=== PATIENT | female | born 1945 | race Caucasian/White ===

== ENCOUNTER 2021-01-04 21:23 | Emergency (ER) | payer MEDICARE, SELFPAY ==
[2021-01-04 21:24] VITALS: BP 159/77; PULSE 73; RESP 18; TEMP 36.3; O2SAT 99; BMI 21.7
--- NOTE | 2021-01-04 22:06 | EKG12_ITS ---
Test Reason : ABD PAIN Blood Pressure : / mmHG Vent. Rate : 055 BPM Atrial Rate : 055 BPM P-R Int : 184 ms QRS Dur : 084 ms QT Int : 426 ms P-R-T Axes : 069 -74 028 degrees QTc Int : 407 ms Sinus bradycardia Left axis deviation Abnormal ECG Confirmed by AURE BRIGGS, KATHERINE ([id number]), digital editor CHEYANNE BYERS ([id number]) on 01/07/2021 1:41:43 PM Referred By: RACHEL Confirmed By:KATHERINE LOONEY MD
[2021-01-04] MEDS: Ondansetron 4 MG/2 ML Vial IV (22:16)
[2021-01-04] MEDS: Morphine 2 MG/ML Syringe IV (22:16)
--- NOTE | 2021-01-04 22:30 | RAD_ITS ---
STUDY: X-RAY CHEST REASON FOR EXAM: Female, 75 years old. pain TECHNIQUE: Single AP portable view of the chest. COMPARISON: 11/19/2016 FINDINGS: The lungs are clear and expanded. There is no demonstrated pleural abnormality. Normal size heart. Normal mediastinum and percy. Normal visualized pulmonary arteries. Normal visualized aortic arch and descending thoracic aorta. Normal visualized thoracic spine. Normal visualized ribs, clavicles, and shoulders. There is no demonstrated abnormality of the visualized soft tissue structures of the upper abdomen. RAD/Chest 1 View (Portable) IMPRESSION: Normal x-ray examination of the chest. Electronically Signed: Vishnu Alcala DO at 23:35 EDT Tel , Service support ,
[2021-01-04 22:33] LABS: Absolute Lymphocyte Count 2.18 X10^3/uL (0.83-4.51); Absolute Neutrophil Count 3.5 X10^3/uL (2.0-7.7); Basophil# 0.02 X10^3/uL; Basophil% 0.3 % (0-1); Eosinophil# 0.13 X10^3/uL; Hematocrit 41.3 % (37-47); Hemoglobin 13.6 g/dL (12.0-15.0); Lymphocyte # 2.18 X10^3/ul (0.83-4.51); Lymphocyte % 33.2 % (19-41); Mean Corp Hgb Conc 32.9 g/dL (32-36); Mean Corpuscular Hgb 30.6 pg (27.0-32.0); Mean Platelet Vol. 9.7 fl (6.2-12.0); Monocyte# 0.72 X10^3/uL; NRBC Flagged by Analyzer 0 % (0-5); Neutrophil # 3.51 X10^3/uL (2.7-7.7); Neutrophil % 53.3 % (47-70); Platelet Count 318 K/mm3 (150-450); RBC Distribution Width CV 13.1 % (11.6-14.6); RBC Distribution Width SD 44.4 fl (35.1-43.9); Red Blood Count 4.44 M/mm3 (4.2-5.4); White Blood Count 6.6 K/mm3 (4.4-11.0)
[2021-01-04 22:48] LABS: AST(SGOT) 19 U/L (15-37); Alanine Aminotransfer ALT/SGPT 26 U/L (13-56); Albumin, Serum 3.8 g/dL (3.2-5.0); Alkaline Phosphatase 69 U/L (45-117); Anion Gap 8 (5-15); BUN 18 mg/dL (7-18); BUN/Creat Ratio 15.9 RATIO (10-20); Bilirubin, Direct 0.12 mg/dL (0.00-0.30); Calcium,Total 9.3 mg/dL (8.5-10.1); Chloride 103 mmol/L (98-107); Creatinine, Serum 1.13 mg/dL (0.55-1.02); EST Glomerular Filtration Rate 50 mL/min (>60); Est Glom Filt Rate - Afr Amer 61 mL/min (>60); Estimated Creatinine Clearance 31.85 ml/min; Globulin 3.6 g/dL (2.2-4.2); Glucose 91 mg/dL (74-106); Lipase 171 U/L (73-393); Potassium 3.7 mmol/L (3.5-5.1); Protein, Total 7.4 g/dL (6.4-8.2); Sodium Level 138 mmol/L (136-145)
--- NOTE | 2021-01-04 23:56 | EDS_ITS ---
HPI <Dr. Elizabeth Hou MD - Last Filed: 01/05/21 00:48> History of Present Illness Chief Complaint: Abd Pain Informant: patient and spouse/S.O. Onset/Context/Timing Onset: Yesterday Context: Gradual Onset Current Severity: Moderate Maximum Severity: Severe Narrative Narrative: Patient present secondary to abdominal pain. She states she felt a twinge of pain yesterday but pain has worsened throughout the day today. She states is diffuse throughout her abdomen. She has had no nausea, vomiting, or diarrhea. No fever but has had some chills. She denies any prior abdominal surgeries. PFSH <Dr. Elizabeth Hou MD - Last Filed: 01/05/21 00:48> PFSH no medical history Home Medications multivitamin [Daily Multiple] 1 ea PO DAILY 11/19/16 [History Last Taken 11/18/16] calcium 01/04/21 [History Last Taken Unknown] dicyclomine 10 mg PO Q6H PRN #15 cap 01/05/21 [Rx Last Taken Unknown] tramadol 50 mg PO Q6H PRN #10 tab 01/05/21 [Rx Last Taken Unknown] Allergy/AdvReac Type Severity Reaction Status Date / Time codeine AdvReac Nausea Verified 01/04/21 21:26 no surgical history Social History Smoking Status: Never smoker ROS <Dr. Elizabeth Hou MD - Last Filed: 01/05/21 00:48> ROS ED Constitutional Constitutional ED: Reports chills; Denies fever(s) Eyes Eyes: Denies change in vision ENT ENT ED: Denies sore throat Cardiovascular Cardiovascular: Denies chest pain Respiratory/Chest Respiratory/Chest: Denies cough or dyspnea Gastrointestinal Gastrointestinal: Reports abdominal pain; Denies diarrhea, nausea or vomiting Genitourinary Genitourinary ED: Denies dysuria Musculoskeletal Musculoskeletal: Denies back pain Integumentary Denies rash Neurologic Neurologic: Denies headache(s) or weakness Psychiatric Psychiatric: Denies anxiety or depression Endocrine Endocrinology: Denies polydipsia or polyuria Allergic/Immunologic Allergic/Immunologic ED: Denies urticaria EXAM <Dr. Elizabeth Hou MD - Last Filed: 01/05/21 00:48> Physical Exam Const Vital Signs: 01/04/21 21:24 01/05/21 00:38 Temperature 97.4 F L Temperature Source Temporal Pulse Rate 73 59 L Respiratory Rate 18 17 Blood Pressure 159/77 H 113/62 Blood Pressure Mean 104 79 Pulse Ox 99 93 Oxygen Delivery Method Room Air Room Air Positive well nourished and well developed General Appearance ED: well developed HEENT Reports normocephalic and head/scalp atraumatic Eyes PERRL and EOMs intact bilaterally Neck supple Chest Wall inspection of chest normal and palpation of chest normal Resp normal respiratory effort and clear to auscultation bilaterally Cardio regular rate and regular rhythm GI GI Narrative: Mild diffuse abdominal tenderness. No guarding or rebound. Hypoactive but present bowel sounds. Palpation: tender Back/Spine no CVA tenderness Extremity normal to inspection Neuro oriented x3 and no sensory deficits noted Sensorium / Orientation: alert Motor Exam: strength 5/5 throughout Psych mental status grossly normal Skin no rashes or lesions noted <Dr. Virgil Canas MD - Last Filed: 01/05/21 02:04> Physical Exam Const Vital Signs: 01/04/21 21:24 01/05/21 00:38 Temperature 97.4 F L Temperature Source Temporal Pulse Rate 73 59 L Respiratory Rate 18 17 Blood Pressure 159/77 H 113/62 Blood Pressure Mean 104 79 Pulse Ox 99 93 Oxygen Delivery Method Room Air Room Air MDM <Dr. Elizabeth Hou MD - Last Filed: 01/05/21 00:48> MDM MDM Narrative Medical decision making narrative: Patient was given 2 mg of morphine, 4 mg of Zofran. 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 EKG is obtained along with lab work. Lab Data Attestation: I reviewed the patient's lab results. Labs: Laboratory Results - last 24 hr 01/04/21 01/04/21 22:00 22:00 WBC 6.6 RBC 4.44 Hgb 13.6 Hct 41.3 MCV 93.0 MCH 30.6 MCHC 32.9 RDW Std Deviation 44.4 H RDW Coeff of Joan 13.1 Plt Count 318 MPV 9.7 Immature Gran % (Auto) 0.200 Neut % (Auto) 53.3 Lymph % (Auto) 33.2 [place] % (Auto) 11.0 H Eos % (Auto) 2.0 Baso % (Auto) 0.3 Absolute Neuts (auto) 3.5 Absolute Lymphs (auto) 2.18 Nucleated RBC % 0 Sodium 138 Potassium 3.7 Chloride 103 Carbon Dioxide 27.0 Anion Gap 8 BUN 18 Creatinine 1.13 H Estim Creat Clear Calc 31.85 Est GFR (MDRD) Af Amer 61 Est GFR (MDRD) Non-Af 50 L BUN/Creatinine Ratio 15.9 Glucose 91 Calcium 9.3 Total Bilirubin 0.40 Direct Bilirubin 0.12 AST 19 ALT 26 Alkaline Phosphatase 69 Troponin I < 0.015 Total Protein 7.4 Albumin 3.8 Globulin 3.6 Lipase 171 Radiography Chest X-Ray - ED: 1 View, Read by ED Physician, Normal, Heart, Lungs and Mediastinum Diagnostic Testing: Radiology Impression Chest X-Ray 01/04/21 22:30 IMPRESSION: Normal x-ray examination of the chest. Electronically Signed: Vishnu Alcala DO at 23:35 EDT Tel , Service support , Abdomen/Pelvis CT 01/05/21 00:15 IMPRESSION: Normal enhanced CT of the abdomen and pelvis. Normal appendix. No evidence of bowel obstruction. Electronically Signed: Vishnu Alcala DO at 1:15 EDT Tel , Service support , EKG Initial EKG: Attestation: I personally reviewed and interpreted this EKG as follows: Interpretation: Sinus Bradycardia (Sinus bradycardia 55 bpm. No acute ischemia.) Treatment and Re-Evaluation Comments:: On repeat evaluation patient is resting comfortably lying back in the bed. She states she feels significantly improved. CT scan abdomen and pelvis is pending at this time will be signed out to oncoming physician for final review. If the CT is normal patient be discharged home and advised to follow bland diet monitor her symptoms. Return instructions provided. <Dr. Virgil Canas MD - Last Filed: 01/05/21 02:04> [facility] Narrative Medical decision making narrative: I took checkout on this patient and reevaluated her. She is feeling very well and has no tenderness including her right upper quadrant. Her CT is negative and her labs look good. I reassured her that it is safe for discharge. She wonders what the cause was, it sounds like she was having periumbilical discomfort may be some bloating, it certainly sounds intestinal in nature and with a negative CT, there are multiple functional abdominal pathologies in the differential diagnosis which we discussed including food intolerance or indigestion, although she has never had this before. She is just starting the weekend now, before she can follow-up next week. I offered prescriptions for dicyclomine and tramadol in case she needed something, she is amenable to those prescriptions and we discussed reasons to return which she is welcome to do for worsening unrelenting discomfort. Certainly cholelithiasis/biliary colic to be in the differential, which is why I advise following up because she may need to have an outpatient ultrasound of the gallbladder which is not available at the hour she is here. Lab Data Attestation: I reviewed the patient's lab results. Labs: Laboratory Results - last 24 hr 01/04/21 01/04/21 22:00 22:00 WBC 6.6 RBC 4.44 Hgb 13.6 Hct 41.3 MCV 93.0 MCH 30.6 MCHC 32.9 RDW Std Deviation 44.4 H RDW Coeff of Joan 13.1 Plt Count 318 MPV 9.7 Immature Gran % (Auto) 0.200 Neut % (Auto) 53.3 Lymph % (Auto) 33.2 [place] % (Auto) 11.0 H Eos % (Auto) 2.0 Baso % (Auto) 0.3 Absolute Neuts (auto) 3.5 Absolute Lymphs (auto) 2.18 Nucleated RBC % 0 Sodium 138 Potassium 3.7 Chloride 103 Carbon Dioxide 27.0 Anion Gap 8 BUN 18 Creatinine 1.13 H Estim Creat Clear Calc 31.85 Est GFR (MDRD) Af Amer 61 Est GFR (MDRD) Non-Af 50 L BUN/Creatinine Ratio 15.9 Glucose 91 Calcium 9.3 Total Bilirubin 0.40 Direct Bilirubin 0.12 AST 19 ALT 26 Alkaline Phosphatase 69 Troponin I < 0.015 Total Protein 7.4 Albumin 3.8 Globulin 3.6 Lipase 171 Radiography Diagnostic Testing: Radiology Impression Chest X-Ray 01/04/21 22:30 IMPRESSION: Normal x-ray examination of the chest. Electronically Signed: Vihsnu lAcala DO at 23:35 EDT Tel , Service support , Abdomen/Pelvis CT 01/05/21 00:15 IMPRESSION: Normal enhanced CT of the abdomen and pelvis. Normal appendix. No evidence of bowel obstruction. Electronically Signed: Vishnu Alcala DO at 1:15 EDT Tel , Service support , Discharge Plan Triage Chief Complaint: Abd Pain ED Provider: Elizabeth Hou Dx/Rx/DC Orders Clinical Impression: Abdominal pain Instructions: ED Abdominal Pain Unkn Cause Fem Prescriptions: New dicyclomine 10 mg capsule 10 mg PO Q6H PRN (Reason: abdominal discomfort) Qty: 15 RF: 0 tramadol 50 mg tablet 50 mg PO Q6H PRN (Reason: pain) Qty: 10 RF: 0 No Action multivitamin [Daily Multiple] 1 EACH tablet 1 ea PO DAILY RF: 0 calcium RF: 0 Primary Care Provider: Care Physician,No Primary Referrals: Aris Solis DO [NON-STAFF] - 1-2 Weeks Care Physician,No Primary [Primary Care Provider] - Disposition Disposition: Home, self care Discharge Date/Time: 01/05/21 02:01
--- NOTE | 2021-01-05 00:15 | CT_ITS ---
STUDY: CT ABDOMEN AND PELVIS WITH CONTRAST REASON FOR EXAM: Female, 75 years old. abd pain -- IV PO Contrast RADIATION DOSAGE (If Supplied By Facility): CTDIvol = ( 18.47 ) mGy, DLP = ( 337.91 ) mGycm TECHNIQUE: Transaxial images were obtained from the dome of the diaphragm to the symphysis pubis with oral contrast. Oral and amp; IV Gastrografin and amp; 100mL Isovue-370 was administered. Sagittal and coronal images were reconstructed. Individualized dose optimization techniques were used for this CT. COMPARISON: None. FINDINGS: The visualized lung bases are unremarkable. The visualized portions of the heart are within normal limits. Normal liver. Normal gallbladder and extrahepatic biliary system. Normal spleen. Normal pancreas. Normal bilateral adrenal glands. Normal right kidney. Normal left kidney. Normal visualized stomach. Normal small intestine. Normal colon. The appendix is visualized and appears normal. Normal abdominal aorta. Normal inferior vena cava. Normal retroperitoneum. Normal urinary bladder. Normal abdominal wall. Mild degenerative changes of the lumbar spine with levoscoliosis CT/Abdomen/Pelvis WITH Contrast IMPRESSION: Normal enhanced CT of the abdomen and pelvis. Normal appendix. No evidence of bowel obstruction. Electronically Signed: Vishnu Alcala DO at 1:15 EDT Tel , Service support ,
[2021-01-05 00:38] VITALS: BP 113/62; PULSE 59; RESP 17; O2SAT 93
[2021-01-05 02:00] VITALS: BP 100/56; PULSE 59; RESP 14; O2SAT 99
== END 2021-01-05 02:01 | disposition home or self-care (01) ==
PROVIDERS: Emergency Provider Emergency Medicine
DX: R10.9 Unspecified abdominal pain (principal); R00.1 Bradycardia, unspecified
CPT/HCPCS: 71045; 74177; 80048; 80076; 83690; 84484; 85025; 93005; 96374; 96375; 99285; J7030; Q9967; A4216; J2405